=== PATIENT | female | born 1975 | race African-American/Black ===

== ENCOUNTER → 2016-12-02 | Outpatient (CLI) | payer OTHER ==
[~2016-12-02] MED LIST: /MOXI40TA PO; ADV250INH INH; IPRA2IN INH; LEVA12INH INH; PRED20TA PO; PRIL40CA PO; TYLE325T5 PO; VENTAER INH; ZITHTAB PO
--- NOTE | 2016-12-02 19:08 | REP ---
MRI PELVIS WITH AND WITHOUT CONTRAST: TECHNIQUE: Sagittal T2 FS, axial T1, T2 FS, coronal T2, T1 FS, post IV gadolinium T1 FS in all three planes with the intravenous administration of 22 mL of gadolinium. Correlation made with multiple prior pelvic ultrasound examinations most recent of which is 10/08/2016. Uterine length is approximately 9.8 cm. There is obliteration of the junctional zone with diffuse heterogeneous signal throughout the uterus. There is a focus of increased signal extending into the posterior myometrium in the mid uterine body measuring 6 mm in diameter. Findings are compatible with adenomyosis. IUD is seen in the endometrial canal. Ovaries appear normal in size. Normal follicles are seen in both ovaries. Lateral and superior to the left ovary is an oval cystic structure which is fairly high in position in the left hemipelvis. It measures 4.3 cm in diameter. Comparing back to prior CT of the pelvis 03/27/2009 a cyst was present at that time and measured 2.6 cm in diameter. It has slowly increased in size in the 7 year interim. There is no other evidence of pelvic mass. There is no free fluid. There is no adenopathy. IMPRESSION: Oval cystic structure left superior pelvis separate from the ovary measures 4.3 cm in maximum diameter. It appears to represent a simple cyst, with no internal contents and no abnormal internal enhancement. The cyst has slowly increased in size since the prior study of 03/27/2009. Findings in the uterus most consistent with adenomyosis. Signed by Lefty Butt MD 12/02/2016 07:43 P
== END ==
LOC: M RAD 16:01
PROVIDERS: ATTEND Nurse Practitioner Women's Health
DX: N83.202 Unspecified ovarian cyst, left side (principal)
CPT/HCPCS: 72197; A9576

== ENCOUNTER → 2017-03-18 | Outpatient (CLI) | payer OTHER ==
--- NOTE | 2017-03-18 10:49 | REPMRS ---
Patient History The patient states she had a clinical breast exam in 03/16 Patient had first child at age 31. No known family history of cancer. Taking hormonal contraceptives for 6 years. Digital Woman Screen Mammo: March 18, 2017 - Exam #: [id number] Bilateral CC and MLO view(s) were taken. Technologist: Madelin Ann, Technologist Prior study comparison: March 12, 2016, digital woman screen mammo performed at [facility]. FINDINGS: There are scattered fibroglandular densities. There has been no change in the appearance of the mammogram from the prior studies. There is a mild amount of scattered fibroglandular density which is fairly symmetric. There is no interval development of dominant mass, architectural distortion, or clustered microcalcification suggestive of malignancy. ASSESSMENT: BI-RADS/ACR category 1 mammogram. Negative. Recommendation Routine screening mammogram in 1 year (for women over age 40). This mammogram was interpreted with the aid of an FDA-approved computer-aided dectection system. Electronically Signed By: Jerry Kaufman MD 03/18/17 [id number]
== END | disposition home or self-care (01) ==
LOC: M WHC 08:49
PROVIDERS: ATTEND Nurse Practitioner Women's Health
DX: Z12.31 Encounter for screening mammogram for malignant neoplasm of breast (principal); Z79.3 Long term (current) use of hormonal contraceptives

== ENCOUNTER → 2017-04-26 | Outpatient (CLI) | payer OTHER ==
[~2017-04-26] MED LIST changes: +BENA25TA9 PO; +CALC750T PO; +VITA200015 PO; +VITA200T4 PO; +VITACRE10 EX; +[UNRECOGNIZED DRUG - CODE] PO
--- NOTE | 2017-04-29 11:39 | SLEEPHOME ---
DATE OF STUDY: 04/27/2017 ORDERING PROVIDER: Shameka Meier Diagnostic home sleep testing was performed due to concern for the obstructive sleep apnea syndrome. For testing, a NOX-T3 respiratory monitoring device was used. Continuous record was made of pulse, oxygen saturation, airflow, chest and abdominal strain, and body position. 9 hours and 59 minutes of data were reviewed. Of these, 8 hours and 4 minutes were identified as time in bed. During the interval marked time in bed, there were 32 respiratory events identified of 10 seconds in duration or greater for a respiratory event index of 4. The events were primarily hypopneic. There were also prolonged periods of periodic breathing demonstrated. The patient's baseline pulse rate was 74 beats per minute. Pulse rate ranged 39-114. Baseline saturation 92%. Lowest oxygen saturation seen 85%. Average saturation 92. Testing was performed in both the supine and nonsupine positions. IMPRESSION: Borderline home sleep testing with repetitive respiratory events but a respiratory event index of 4 is suggestive but not confirmatory for obstructive sleep apnea syndrome. RECOMMENDATION: The frequency of respiratory events did not reach the threshold for supporting the diagnosis of obstructive sleep apnea. However, home testing has been known to underestimate the severity of disease. If the patient's symptoms support a diagnosis of obstructive sleep apnea syndrome, referral for formal sleep evaluation and further in-laboratory diagnostic testing is recommended to establish this condition.
== END ==
LOC: M SLEEP HO 13:19
PROVIDERS: ATTEND Nurse Practitioner Adult Health
DX: G47.30 Sleep apnea, unspecified (principal)

== ENCOUNTER 2017-04-27 15:05 | Emergency (ER) | payer OTHER ==
[~2017-04-27] VITALS: Ht 157.5 cm; Wt 115.7 kg
[~2017-04-27 15:05] MED LIST changes: -BENA25TA9 PO; -CALC750T PO; -VITA200015 PO; -VITA200T4 PO; -VITACRE10 EX; -[UNRECOGNIZED DRUG - CODE] PO
[2017-04-27] MEDS ORDERED: BENA25TA10 PO (15:18)
[2017-04-27] MEDS ORDERED: [UNRECOGNIZED DRUG - CODE] PO (15:18)
[2017-04-27] MEDS ORDERED: CALC750T PO (15:18)
[2017-04-27] MEDS ORDERED: VITA200015 PO (15:18)
[2017-04-27] MEDS ORDERED: VITA200T4 PO (15:18)
[2017-04-27] MEDS ORDERED: VITACRE10 EX (15:18)
[2017-04-27 15:59] LABS: CONTROL LINE UCG INT CTR LINE PRESENT
--- NOTE | 2017-04-27 16:48 | REP ---
Clinical: Left adnexal pain . Technique: Transabdominal pelvic ultrasound followed by transvaginal examination for better evaluation of the endometrium and adnexa with color Doppler evaluation of the ovaries. Findings: Bladder is completely collapsed. Normal anteverted uterus measures 9.6 x 4.6 x 6.2 cm . The endometrial complex measures 3.2 mm thickness. No discrete uterine or endometrial abnormalities are appreciated. IUD in satisfactory position. Bilateral ovaries are normal in appearance and vascularity without evidence for torsion. Right ovary measures 3.0 x 2.0 x 2.9 cm ; R I = 0.56 . Left ovary measures 2.6 x 1.9 x 2.1 cm ; R I = 0.65 . No pelvic fluid or adnexal mass lesion . Impression: 1. normal pelvic ultrasound. IUD in satisfactory position. 2. Bilateral ovaries/adnexa are normal and without torsion, pelvic fluid or mass lesion. Signed by Bryon Alexis MD 04/27/2017 04:39 P
[2017-04-27 16:53] VITALS: BP 135/71
== END 2017-04-27 16:59 | disposition home or self-care (01) ==
LOC: M ED 15:05
DX: R10.2 Pelvic and perineal pain (principal); N89.8 Other specified noninflammatory disorders of vagina; N93.9 Abnormal uterine and vaginal bleeding, unspecified; K21.9 Gastro-esophageal reflux disease without esophagitis; J45.909 Unspecified asthma, uncomplicated; G47.33 Obstructive sleep apnea (adult) (pediatric); Z98.84 Bariatric surgery status; Z79.52 Long term (current) use of systemic steroids; Z79.899 Other long term (current) drug therapy; Z88.2 Allergy status to sulfonamides

== ENCOUNTER 2017-07-03 13:50 | Emergency (ER) | payer OTHER ==
[~2017-07-03] VITALS: Ht 162.6 cm; Wt 113.6 kg
[~2017-07-03 13:50] MED LIST changes: +BENA25TA10 PO; +CALC750T PO; +VITA200015 PO; +VITA200T4 PO; +VITACRE10 EX; +[UNRECOGNIZED DRUG - CODE] PO
[2017-07-03] MEDS ORDERED: VITA400C97 PO (14:11)
[2017-07-03 15:34] LABS: BASO % 0.3 % (0.0-1.0); EOS # 0.2 K/mm3 (0.0-0.50); EOS % 3.3 % (0.0-3.0); LARGE UNSTAINED CELL # 0.2 K/mm3 (0.0-0.4); LARGE UNSTAINED CELL % 2.8 % (0.0-4.0); LYMPH # 1.7 K/mm3 (1.5-4.5); LYMPH % 26.2 % (24.0-44.0); MEAN CORPUSCULAR HGB CONC 34.1 g/dl (32.0-36.5); MONO # 0.6 K/mm3 (0.0-0.8); MONO % 9.3 % (0.0-5.0); NEUTROPHILS # 3.9 K/mm3 (1.8-7.7); NEUTROPHILS % 58.1 % (36.0-66.0); PLATELET COUNT, AUTOMATED 259 k/mm3 (150-450); RED CELL DISTRIBUTION WIDTH 12.6 % (11.5-14.5); WHITE BLOOD COUNT 6.6 K/mm3 (4.0-10.0)
[2017-07-03] MEDS ORDERED: methylPREDNISolone INJ 125 MG/2 ML VIAL (J2930) IV ONE (16:00)
[2017-07-03 16:52] VITALS: BP 147/91
[2017-07-08 00:07] LABS: Lyme Disease IgG/IgM Antibodie <0.91 ISR (0.00-0.90); Lyme Disease IgM Ab Quantitati <0.80 index (0.00-0.79)
== END 2017-07-03 16:52 | disposition home or self-care (01) ==
LOC: M ED 13:50
DX: R21 Rash and other nonspecific skin eruption (principal); Z98.84 Bariatric surgery status; G47.30 Sleep apnea, unspecified; Z87.01 Personal history of pneumonia (recurrent); Z79.899 Other long term (current) drug therapy; Z88.2 Allergy status to sulfonamides
CPT/HCPCS: 85025; 86617; 96374; 99283; J2930

== ENCOUNTER 2017-12-22 11:33 | Emergency (ER) | payer OTHER | END 2017-12-22 13:15 | disposition home or self-care (01) | LOC: M ED 11:33 | DX: J32.9 Chronic sinusitis, unspecified (principal); Z98.84 Bariatric surgery status; Z79.899 Other long term (current) drug therapy; Z88.2 Allergy status to sulfonamides | CPT/HCPCS: 99283 ==

== ENCOUNTER → 2018-03-21 | Outpatient (CLI) | payer OTHER | LOC: M WHC 08:30 | DX: Z12.31 Encounter for screening mammogram for malignant neoplasm of breast (principal) | CPT/HCPCS: 77067 ==

== ENCOUNTER 2018-06-16 10:53 | Emergency (ER) | payer OTHER ==
[2018-06-16] MEDS: diazePAM 10 MG TAB PO (11:44)
[2018-06-16] MEDS: KETOROLAC 60 MG/2 ML VIAL (J1885) IM (11:45)
== END 2018-06-16 13:09 | disposition home or self-care (01) ==
LOC: M ED 10:53
DX: M46.1 Sacroiliitis, not elsewhere classified (principal); M54.5 Low back pain; M62.830 Muscle spasm of back; M51.36 Other intervertebral disc degeneration, lumbar region; Z98.84 Bariatric surgery status; Z88.2 Allergy status to sulfonamides; Z79.899 Other long term (current) drug therapy
CPT/HCPCS: J1885

== ENCOUNTER → 2018-07-21 | Outpatient (CLI) | payer OTHER | LOC: M SMT 13:20 | DX: N92.0 Excessive and frequent menstruation with regular cycle (principal) | CPT/HCPCS: 76830 ==

== ENCOUNTER → 2018-08-22 | Outpatient (CLI) | payer OTHER | LOC: M SMT 08:00 | DX: D25.0 Submucous leiomyoma of uterus (principal); Z97.5 Presence of (intrauterine) contraceptive device | CPT/HCPCS: 76830 ==

== ENCOUNTER → 2019-04-27 | Outpatient (REF) | payer OTHER ==
[~2019-04-27] MED LIST changes: -/MOXI40TA PO; +AVEL1TAB2 PO; +BENZ200C70 PO; +CEFU50TA PO; +CLAR5TAB7 PO; +ROBA500T PO; +VALI5TAB PO; +VITA400C97 PO
[2019-04-27 13:41] LABS: BASO % 0.4 % (0.0-1.0); EOS # 0.1 10^3/uL (0.0-0.50); EOS % 1.8 % (0.0-3.0); HEMATOCRIT 40.2 % (36.0-47.0); LYMPH % 27.7 % (24.0-44.0); MEAN CORPUSCULAR HEMOGLOBIN 29.8 pg (27.0-33.0); MEAN CORPUSCULAR HGB CONC 32.3 g/dl (32.0-36.5); MEAN CORPUSCULAR VOLUME 92.2 fl (80.0-96.0); MONO # 0.7 10^3/uL (0.0-0.8); MONO % 9.8 % (0.0-5.0); NEUTROPHILS # 4.4 10^3/uL (1.8-7.7); NEUTROPHILS % 60.2 % (36.0-66.0); PLATELET COUNT, AUTOMATED 231 10^3/uL (150-450); RED BLOOD COUNT 4.36 10^6/uL (4.00-5.40); WHITE BLOOD COUNT 7.3 10^3/uL (4.0-10.0)
[2019-04-27 13:56] LABS: ALBUMIN 3.5 GM/DL (3.2-5.2); ALT/SGPT 31 U/L (12-78); BILIRUBIN,TOTAL 0.3 MG/DL (0.2-1.0); BLOOD UREA NITROGEN 10 MG/DL (7-18); CARBON DIOXIDE LEVEL 25 MEQ/L (21-32); CHLORIDE LEVEL 109 MEQ/L (98-107); CHOLESTEROL LEVEL 138 MG/DL (<200); CHOLESTEROL RISK RATIO 2.509 (<5); CREATININE FOR GFR 0.64 MG/DL (0.55-1.30); FERRITIN 176 NG/ML (8-252); FREE T4 1.06 NG/DL (0.76-1.46); GLOMERULAR FILTRATION RATE > 60.0 (>58); GLUCOSE, FASTING 87 MG/DL (70-100); HDL CHOLESTEROL 55 MG/DL (>40); IRON (FE) 90 UG/DL (50-170); LDL CHOLESTEROL 66 MG/DL (<100); NON-HDL-C 83 MG/DL; POTASSIUM SERUM 3.8 MEQ/L (3.5-5.1); SODIUM LEVEL 141 MEQ/L (136-145); THYROID STIMULATING HORMONE 0.869 uIU/ML (0.358-3.740); TOTAL IRON BINDING CAPACITY 281 UG/DL (250-450); TOTAL PROTEIN 6.8 GM/DL (6.4-8.2); TRIGLYCERIDES LEVEL 86 MG/DL (<150)
[2019-04-27 14:08] LABS: HEMOGLOBIN A1c 5.7 %
== END ==
LOC: M LABDRAW1 12:04
PROVIDERS: ATTEND Physician Assistant
DX: Z13.29 Encounter for screening for other suspected endocrine disorder (principal); D50.9 Iron deficiency anemia, unspecified

== ENCOUNTER → 2019-05-03 | Outpatient (CLI) | payer OTHER ==
--- NOTE | 2019-05-03 17:16 | REP ---
BILATERAL MAMMOGRAM WITH 3D TOMOSYNTHESIS: No family history of breast cancer. Janes Ayala lifetime risk of breast cancer 13.3%. COMPARISON: Comparison mammogram 03/21/2018 as well as other prior exams. Mild scattered fibroglandular tissue appears fairly symmetrical. There is a suspected oval nodule in the lateral left breast approximately 6 mm in diameter. No other nodule is seen bilaterally. No clustered microcalcifications are seen. IMPRESSION: ACR 0 incomplete. Possible 6 mm oval nodule lateral left breast. Recommend spot compression views and ultrasound to further evaluation. BIRADS 0: BI-RADS/ACR category 0 mammogram, Incomplete: Need additional imaging evaluation and/or prior mammograms for comparison. This mammogram was interpreted with the aid of an FDA-approved computer-aided detection system. The patient states she/he had a clinical breast exam 01/2019. The patient letter being requested is M0.
== END ==
LOC: M WHC 14:55
PROVIDERS: ATTEND Nurse Practitioner Women's Health
DX: Z12.31 Encounter for screening mammogram for malignant neoplasm of breast (principal)

== ENCOUNTER → 2019-06-12 | Outpatient (CLI) | payer OTHER ==
[~2019-06-12] MED LIST changes: +LIDOCAINE 1% MDV 20ML VIAL As Ordered ONE
[2019-06-12 13:03] VITALS: BP 129/74
--- NOTE | 2019-06-12 15:12 | REP ---
DIGITAL DIAGNOSTIC UNILATERAL LEFT BREAST MAMMOGRAPHY. HISTORY: The patient was referred for stereotactic needle biopsy because diagnostic mammography May 23, 2019 showed a nodular opacity in the upper outer quadrant. No corresponding sonographic target. Comparison is also made with May 03, 2019 screening mammography. FINDINGS: The patient was interviewed and informed consent was obtained. The patient's left breast was positioned in the craniocaudal projection and initial craniocaudal targeting failed to identify the target nodule. Patient was then positioned in the lateromedial projection. This also failed to identify a nodular target to correspond with the original mammographic findings. Accordingly, the biopsy was deferred. IMPRESSION: Stereotactic needle biopsy deferred due to inability to visualize a target in the upper outer quadrant of the left breast. 6-month followup left breast mammography and repeat sonography recommended. This was reviewed and discussed with the patient, who indicated that she understood and agrees with a 6-month followup mammography recommendation. Electronically Signed by Say Kaufman MD 06/12/2019 04:54 P
== END ==
LOC: M IRPRO 11:22
PROVIDERS: ATTEND Surgery
DX: N63.20 Unspecified lump in the left breast, unspecified quadrant (principal)

== ENCOUNTER → 2019-09-22 | Outpatient (REF) | payer OTHER ==
[~2019-09-22] MED LIST changes: -LIDOCAINE 1% MDV 20ML VIAL As Ordered ONE
[2019-09-22 12:41] LABS: BASO % 0.8 % (0.0-1.0); EOS # 0.1 10^3/uL (0.0-0.5); EOS % 2.1 % (0.0-3.0); HEMATOCRIT 39.3 % (36.0-47.0); HEMOGLOBIN 12.8 g/dl (12.0-15.5); LYMPH # 1.9 10^3/uL (1.5-5.0); LYMPH % 36.4 % (24.0-44.0); MEAN CORPUSCULAR HEMOGLOBIN 30.1 pg (27.0-33.0); MEAN CORPUSCULAR HGB CONC 32.6 g/dl (32.0-36.5); MEAN CORPUSCULAR VOLUME 92.5 fl (80.0-96.0); MONO # 0.5 10^3/uL (0.0-0.8); MONO % 10.3 % (0.0-5.0); NEUTROPHILS # 2.6 10^3/uL (1.5-8.5); PLATELET COUNT, AUTOMATED 246 10^3/uL (150-450); RED BLOOD COUNT 4.25 10^6/uL (4.00-5.40); WHITE BLOOD COUNT 5.2 10^3/uL (4.0-10.0)
[2019-09-22 12:47] LABS: ALBUMIN 3.6 GM/DL (3.2-5.2); ALT/SGPT 29 U/L (12-78); BILIRUBIN,TOTAL 0.5 MG/DL (0.2-1.0); BLOOD UREA NITROGEN 12 MG/DL (7-18); C REACTIVE PROTEIN QUANTITATIV 0.36 MG/DL (0.00-0.30); CALCIUM LEVEL 9.3 MG/DL (8.5-10.1); CARBON DIOXIDE LEVEL 27 MEQ/L (21-32); CHLORIDE LEVEL 111 MEQ/L (98-107); CREATININE FOR GFR 0.79 MG/DL (0.55-1.30); FERRITIN 215 NG/ML (8-252); GLOMERULAR FILTRATION RATE > 60.0 (>58); GLUCOSE, FASTING 86 MG/DL (70-100); IRON (FE) 93 UG/DL (50-170); PERCENT SATURATION 34.3 % (13.2-45.0); POTASSIUM SERUM 4.1 MEQ/L (3.5-5.1); RHEUMATOID FACTOR QUANT < 10.0 IU/ML (<15.0); SODIUM LEVEL 142 MEQ/L (136-145); TOTAL IRON BINDING CAPACITY 271 UG/DL (250-450); URIC ACID 4.7 MG/DL (2.6-6.0)
[2019-09-22 12:55] LABS: TOTAL 25(OH) VITAMIN D 26.8 NG/ML (30.0-100.0)
[2019-09-22 13:37] LABS: ERYTHROCYTE SEDIMENTATION RATE 12 mm/hr (0-20)
[2019-09-25 07:22] LABS: CYCLIC CITRULLINATED PEPTIDE 7 units (0-19); Lyme Disease IgG/IgM Antibodie <0.91 ISR (0.00-0.90); Lyme Disease IgM Ab Quantitati <0.80 index (0.00-0.79)
== END ==
LOC: M LABDRAW1 11:31
PROVIDERS: ATTEND Physician Assistant
DX: M25.50 Pain in unspecified joint (principal); D64.9 Anemia, unspecified

== ENCOUNTER → 2019-10-10 | Outpatient (REF) | payer OTHER | LOC: M LAB REF 16:56 | PROVIDERS: ATTEND Physician Assistant | DX: N30.01 Acute cystitis with hematuria (principal) ==

== ENCOUNTER → 2019-11-06 | Outpatient (CLI) | payer OTHER ==
--- NOTE | 2019-11-07 07:35 | REP ---
MRI LEFT ANKLE: TECHNIQUE: Sagittal proton density, STIR, axial proton density fat sat, T1, coronal proton density, STIR. There is thickening of the distal Achilles tendon with mild ill-defined edema on T2-weighted images within the tendon and immediately surrounding the tendon. Findings are consistent with Achilles tendinitis. There is no evidence of Achilles tendon tear. The anterior tibial, posterior tibial, flexor hallucis longus, flexor digitorum longus, and peroneal tendons are all intact without evidence of significant tenosynovitis. The anterior and posterior talofibular, calcaneofibular, and deltoid ligaments appear intact. Plantar fascia demonstrates no significant abnormality. There is a normal amount of scattered joint fluid. Small spur is seen at the anterior aspect of the distal end of the tibia. There is no bone marrow edema or occult fracture. IMPRESSION: Mild to moderate Achilles tendinitis. Mild spurring distal end of tibia anteriorly. Electronically Signed by Lefty Butt MD 11/07/2019 12:55 P
== END ==
LOC: M RAD 18:02
PROVIDERS: ATTEND Physician Assistant Medical
DX: M76.62 Achilles tendinitis, left leg (principal)

== ENCOUNTER → 2020-05-08 | Outpatient (REF) | payer OTHER | LOC: M LAB REF 17:41 | PROVIDERS: ATTEND Physician Assistant | DX: N23 Unspecified renal colic (principal) ==

== ENCOUNTER → 2020-08-08 | Outpatient (REF) | payer OTHER | LOC: M LAB REF 17:03 | PROVIDERS: ATTEND Physician Assistant | DX: K60.4 Rectal fistula (principal) ==

== ENCOUNTER → 2021-06-05 | Outpatient (CLI) | payer OTHER ==
--- NOTE | 2021-06-05 22:31 | REPVR ---
PROCEDURE INFORMATION: Exam: MR Cervical Spine Without Contrast Exam date and time: 06/05/2021 2:47 PM Age: 45 years old Clinical indication: Neck pain; Additional info: Cervicalgia TECHNIQUE: Imaging protocol: Multiplanar magnetic resonance images of the cervical spine without contrast. COMPARISON: No relevant prior studies available. FINDINGS: Cervical vertebral body heights are intact. Straightening of the cervical lordosis. The dens is intact. Disc space heights are unremarkable. No abnormal marrow signal. No cord compression, expansion, or abnormal cord signal. Visualized structures of the posterior fossa are unremarkable. No significant areas of canal or foraminal narrowing. Soft tissues are unremarkable. IMPRESSION: No acute findings in the cervical spine. Electronically signed by: Blas Goodman On 06/05/2021 22:31:14 PM
== END ==
LOC: M PLAIMG 13:41
PROVIDERS: ATTEND Physician Assistant
DX: M54.2 Cervicalgia (principal)

== ENCOUNTER → 2021-08-18 | Outpatient (REF) | payer OTHER | LOC: M SFHCRHEU 14:42 | PROVIDERS: ATTEND Internal Medicine | DX: M54.9 Dorsalgia, unspecified (principal) ==

== ENCOUNTER → 2021-08-27 | Outpatient (CLI) | payer OTHER ==
--- NOTE | 2021-08-27 16:47 | REP ---
INDICATION: DORSALGIA, UNSPECIFIED. COMPARISON: 02/11/2009 TECHNIQUE: AP pelvis FINDINGS: Once again, the hip joint spaces are symmetric and relatively well maintained. There is no acute fracture, dislocation, or subluxation. Minimal left femoral head marginal osteophyte formation has developed. IMPRESSION: Chronic changes left hip as described above. <Electronically signed by George Clement > 08/27/21 [id number]
--- NOTE | 2021-08-28 11:15 | REP ---
INDICATION: DORSALGIA, UNSPECIFIED. COMPARISON: None. TECHNIQUE: Four views each wrist FINDINGS: Bilateral: No acute fracture or destructive osseous lesion. IMPRESSION: No acute osseous abnormality seen bilateral <Electronically signed by George Clement > 08/28/21 [id number]
--- NOTE | 2021-08-28 12:00 | REP ---
INDICATION: DORSALGIA, UNSPECIFIED. COMPARISON: None. TECHNIQUE: Four views each hand FINDINGS: Right hand: There is mild asymmetric joint space narrowing involving the interphalangeal joint of the 1st digit seen in conjunction with marginal osteophyte formation. The remainder of the intra digital joints and metacarpophalangeal joints are symmetric and well maintained without osteophytosis, marginal erosions, or periarticular osteopenia. There is no acute fracture, dislocation, or subluxation. Left hand: All joint spaces are symmetric and well maintained. There is no marginal osteophytosis. There are no marginal erosions or evidence of periarticular osteopenia. There is no acute fracture, dislocation, or subluxation. IMPRESSION: Right hand chronic changes as described above. No abnormality seen involving the left hand. <Electronically signed by George Clement > 08/28/21 [id number]
== END ==
LOC: M RAD 13:54
PROVIDERS: ATTEND Internal Medicine
DX: M54.9 Dorsalgia, unspecified (principal); M19.041 Primary osteoarthritis, right hand; M25.40 Effusion, unspecified joint; M25.752 Osteophyte, left hip

== ENCOUNTER → 2021-10-03 | Outpatient (REF) | payer OTHER ==
[2021-10-03 17:32] LABS: TOTAL PROTEIN,RANDOM URINE 9.6 MG/DL (0.0-12.0)
[2021-10-03 17:39] LABS: BASO % 0.5 % (0.0-1.0); EOS # 0.1 10^3/uL (0.0-0.5); EOS % 1.4 % (0.0-3.0); HEMATOCRIT 42.3 % (36.0-47.0); HEMOGLOBIN 13.4 g/dl (12.0-15.5); LYMPH # 2.7 10^3/uL (1.5-5.0); LYMPH % 37.3 % (24.0-44.0); MEAN CORPUSCULAR HGB CONC 31.7 g/dl (32.0-36.5); MEAN CORPUSCULAR VOLUME 91.6 fl (80.0-96.0); MONO # 0.7 10^3/uL (0.0-0.8); MONO % 9.2 % (2.0-8.0); NEUTROPHILS # 3.7 10^3/uL (1.5-8.5); NEUTROPHILS % 51.2 % (36.0-66.0); PLATELET COUNT, AUTOMATED 306 10^3/uL (150-450); RED BLOOD COUNT 4.62 10^6/uL (4.00-5.40); WHITE BLOOD COUNT 7.3 10^3/uL (4.0-10.0)
[2021-10-03 17:46] LABS: APPEARANCE, URINE HAZY (CLEAR); BACTERIA, URINE AUTO NEGATIVE (NEGATIVE); BILIRUBIN, URINE AUTO NEGATIVE (NEGATIVE); BLOOD, URINE BLOOD NEGATIVE (NEGATIVE); COLOR, URINE YELLOW (YELLOW); GLUCOSE, URINE (UA) AUTO NEGATIVE (NEGATIVE); KETONE, URINE AUTO TRACE mg/dL (NEGATIVE); LEUKOCYTE ESTERASE, URINE AUTO TRACE (NEGATIVE); MUCUS, URINE SMALL (NEGATIVE); NITRITE, URINE AUTO NEGATIVE (NEGATIVE); PROTEIN, URINE AUTO NEGATIVE (NEGATIVE); RBC, URINE AUTO 2 /HPF (0-3); SPECIFIC GRAVITY URINE AUTO 1.026 (1.002-1.035); SQUAMOUS EPITHELIAL CELL UR AU 3 /HPF (0-6); WBC, URINE AUTO 4 /HPF (0-3)
[2021-10-03 17:55] LABS: ALBUMIN 3.8 GM/DL (3.2-5.2); ALT/SGPT 21 U/L (12-78); BILIRUBIN,DIRECT 0.1 MG/DL (0.0-0.2); BILIRUBIN,TOTAL 0.4 MG/DL (0.2-1.0); BLOOD UREA NITROGEN 12 MG/DL (7-18); CALCIUM LEVEL 9.4 MG/DL (8.5-10.1); CARBON DIOXIDE LEVEL 27 MEQ/L (21-32); CHLORIDE LEVEL 108 MEQ/L (98-107); COMPLEMENT C3 146 MG/DL (90-180); COMPLEMENT C4 43 MG/DL (10-40); CREATININE FOR GFR 0.63 MG/DL (0.55-1.30); GLOMERULAR FILTRATION RATE > 60.0 (>58); GLUCOSE, FASTING 88 MG/DL (70-100); POTASSIUM SERUM 4.2 MEQ/L (3.5-5.1); SODIUM LEVEL 140 MEQ/L (136-145); TOTAL PROTEIN 7.4 GM/DL (6.4-8.2)
[2021-10-07 09:51] LABS: DRVV SCREEN 46.6 SEC
[2021-10-07 09:53] LABS: PTT LUPUS TYPE ANTICOAG SCREEN 1.3 (0-1.2)
[2021-10-07 10:03] LABS: DRVV CONFIRM 41.7 SEC; LUPUS CONFIRM RATIO 1.1; NORMALIZED RATIO 1.18 (0.00-1.20)
== END ==
LOC: M SFHCRHEU 15:20
PROVIDERS: ATTEND Internal Medicine
DX: M06.4 Inflammatory polyarthropathy (principal)

== ENCOUNTER → 2021-10-20 | Outpatient (CLI) | payer OTHER | LOC: M RAD 08:07 | PROVIDERS: ATTEND Internal Medicine | DX: M54.9 Dorsalgia, unspecified (principal) ==

== ENCOUNTER → 2022-04-14 | Outpatient (REF) | payer OTHER | LOC: M SFHCRHEU 16:00 | PROVIDERS: ATTEND Internal Medicine | DX: M06.4 Inflammatory polyarthropathy (principal) ==

== ENCOUNTER → 2022-05-14 | Outpatient (CLI) | payer OTHER | LOC: M PLAIMG 13:36 | PROVIDERS: ATTEND Internal Medicine | DX: M79.89 Other specified soft tissue disorders (principal) ==

== ENCOUNTER → 2022-06-03 | Outpatient (CLI) | payer OTHER | LOC: M WHC 15:55 | PROVIDERS: ATTEND Physician Assistant | DX: Z12.31 Encounter for screening mammogram for malignant neoplasm of breast (principal) ==

== ENCOUNTER → 2022-12-23 | Outpatient (CLI) | payer OTHER | LOC: M PLALAB 13:58 | PROVIDERS: ATTEND Family Medicine | DX: R06.00 Dyspnea, unspecified (principal) ==

== ENCOUNTER → 2023-03-03 | Outpatient (CLI) | payer OTHER | LOC: M PLAIMG 14:52 | PROVIDERS: ATTEND Internal Medicine | DX: M75.81 Other shoulder lesions, right shoulder (principal) ==

== ENCOUNTER → 2023-06-04 | Outpatient (CLI) | payer OTHER | LOC: M WHC 12:46 | PROVIDERS: ATTEND Physician Assistant | DX: Z12.31 Encounter for screening mammogram for malignant neoplasm of breast (principal) ==

== ENCOUNTER → 2023-10-13 | Outpatient (CLI) | payer OTHER | LOC: M PLAIMG 12:30 | PROVIDERS: ATTEND Internal Medicine | DX: M75.81 Other shoulder lesions, right shoulder (principal); M25.551 Pain in right hip ==

== ENCOUNTER → 2024-06-09 | Outpatient (CLI) | payer OTHER | LOC: M WHC 07:32 | PROVIDERS: ATTEND Physician Assistant | DX: Z12.31 Encounter for screening mammogram for malignant neoplasm of breast (principal) ==

== ENCOUNTER → 2025-02-19 | Outpatient (CLI) | payer OTHER | LOC: M RAD 08:50 | PROVIDERS: ATTEND Physician Assistant | DX: M79.604 Pain in right leg (principal); M79.605 Pain in left leg ==

== ENCOUNTER → 2025-05-28 | Outpatient (CLI) | payer OTHER ==
[~2025-05-28] MED LIST changes: +DULO1CAP6; +ELIQ5TAB; +EMGA120I; +HYDR200T46; +LORA-1041; +NORT25CA2; +PREG100C2; +RIZA10TA2; +TIZA10TA; +TRAM50TA2
== END ==
LOC: M RAD 12:23
PROVIDERS: ATTEND Internal Medicine Critical Care Medicine
DX: I26.99 Other pulmonary embolism without acute cor pulmonale (principal)
CPT/HCPCS: 71046; 78582; A9540; A9567

== ENCOUNTER → 2025-06-04 | Outpatient (CLI) | payer OTHER | LOC: M CARPUL 08:04 | PROVIDERS: ATTEND Internal Medicine Critical Care Medicine | DX: I26.99 Other pulmonary embolism without acute cor pulmonale (principal); I08.0 Rheumatic disorders of both mitral and aortic valves ==

== ENCOUNTER → 2025-06-04 | Outpatient (CLI) | payer OTHER | LOC: M LAB 08:09 | PROVIDERS: ATTEND Internal Medicine Critical Care Medicine | DX: I26.99 Other pulmonary embolism without acute cor pulmonale (principal) ==

== ENCOUNTER → 2025-06-19 | Outpatient (CLI) | payer OTHER | LOC: M WHC 09:00 | PROVIDERS: ATTEND Physician Assistant | DX: Z12.31 Encounter for screening mammogram for malignant neoplasm of breast (principal); R92.313 Mammographic fatty tissue density, bilateral breasts ==

== ENCOUNTER → 2025-08-09 | Outpatient (CLI) | payer OTHER | LOC: M PLAIMG 07:49 | PROVIDERS: ATTEND Neuromusculoskeletal Medicine, Sports Medicine | DX: M25.561 Pain in right knee (principal); M17.11 Unilateral primary osteoarthritis, right knee; M25.461 Effusion, right knee; M94.261 Chondromalacia, right knee; S83.511A Sprain of anterior cruciate ligament of right knee, initial encounter; S83.411A Sprain of medial collateral ligament of right knee, initial encounter; X58.XXXA Exposure to other specified factors, initial encounter; Y92.9 Unspecified place or not applicable; Y93.9 Activity, unspecified; Y99.9 Unspecified external cause status ==

== ENCOUNTER → 2025-10-15 | Outpatient (CLI) | payer OTHER | LOC: M SOG 07:46 | PROVIDERS: ATTEND Physician Assistant | DX: M25.531 Pain in right wrist (principal) ==